=== PATIENT | female | born 1950 | race African-American/Black ===

== ENCOUNTER 2017-04-17 19:04 | Inpatient (IN) ==
[2017-04-17] MEDS ORDERED: SODIUM CHLORIDE 0.9% 1,000 ML IV STA (19:29)
[2017-04-17] MEDS ORDERED: INSULIN REGULAR 100 UNIT/ML SUBCUT STA (19:29)
[2017-04-17] MEDS ORDERED: INSULIN REGULAR 100 UNIT/ML ONE ×2 (19:42→21:40)
--- NOTE | 2017-04-17 19:48 | XRay Report ---
Portable chest. Indication: Shortness of breath and fever. Comparison: April 15, 2017. The heart is normal in size. The mediastinal contours are unremarkable. The pulmonary vasculature is normal. There is no consolidation, pneumothorax, or pleural effusion. Degenerative changes are noted within the spinal column and shoulders. Impression: No acute abnormality. PROCEDURE INTERPRETED AT [facility] DEPARTMENT OF RADIOLOGY Final Report Signed by: Dr. Ibis Klein
--- NOTE | 2017-04-17 20:15 | Emergency Department Note ---
Sarah Auguste Hilary, am scribing for, and in the presence of, Mitul Pablo MD 19:35. Bev Auguste Charles R, MD, personally performed the services described in this documentation, ascribed by Adrienne Smith in my presence, and it is both accurate and complete . Arrival - Arrival Chief Complaint: Non-Specific Stated Complaint: high blood sugar ED Nursing Triage Note: Patient to triage complaining of high blood sugar. She states at home it was 450. She states it has been high since yesterday and she is unable to get it down. Patient is complaining of a headache. Mode of Arrival: Ambulatory Limitations: No Limitations Source: Patient, RN Notes Reviewed Time Seen by Provider: 04/17/17 19:25 - History of Present Illness HPI Narrative: Pt is a 67 y/o black female presenting to the ED with c/o high blood sugar which onset today. She states that her blood sugar at home was 450 and that it is not normally this high. She confirms neck pain, cough, abdominal "funny feeling" and sore throat but denies dysuria or frequent urination. No other complaints or problems stated in the ED. Onset (ago): hour(s) Consistency: constant Severity: mild Allergies/Adverse Reactions: Allergies Allergy/AdvReac Type Severity Reaction Status Date / Time No Known Allergies Allergy Unverified 04/17/17 19:21 Home Medications: Home Medications Medication Instructions Recorded Confirmed Type Cyclobenzaprine [Flexeril] 10 mg PO TID #10 tablet 04/15/17 04/17/17 Rx HYDROcodone/ACETAMIN 5-325 [[facility] 1 tablet PO Q6H #15 tablet 04/15/17 04/17/17 Rx 5-325] Linagliptin [Tradjenta] 5 mg PO DAILY 04/15/17 04/17/17 History Lisinopril 20 mg PO DAILY 04/15/17 04/17/17 History Omeprazole 20 mg PO DAILY 04/15/17 04/17/17 History glipiZIDE [Glipizide] 5 mg PO BID 04/15/17 04/17/17 History Cyanocobalamin (Vitamin B-12) 1,000 mcg IJ Q30D 04/17/17 04/17/17 History [Cyanocobalamin Injection] Review of System - Review of System 12 point system: reviewed and no additional remarkable complaints except as stated - Review of System Constitutional: Present: other (high blood sugar) Head/Ears/Nose/Throat: Present: sore throat Respiratory: Present: cough Gastrointestinal: Absent: abdominal pain ("funny feeling") Genitourinary female: Absent: dysuria, frequency Musculoskeletal: Present: neck pain Medical,Surgical,& Family Hx - Medical History Endocrine: History of: Diabetes Mellitus (NIDDM), Dyslipidemia - Social History Smoking Status: Never smoker Frequency of Alcohol Use: None Type of Drug Use: None Exam Vital Signs: Vital Signs Temperature 100.4 F H 04/17/17 21:00 Pulse Rate 86 04/17/17 20:13 Respiratory Rate 18 04/17/17 20:13 Blood Pressure 156/65 04/17/17 20:13 O2 Sat by Pulse Oximetry 97 04/17/17 19:17 - General General appearance: alert, in no apparent distress - Head Head exam: Present: atraumatic, normocephalic - Eye Eye exam: Present: normal appearance, PERRL, EOMI - ENT ENT exam: Present: mucous membranes moist, TM's normal bilaterally. Absent: mucous membranes dry - Expanded ENT Exam Throat exam: Present: tonsillar erythema - Neck Neck exam: Present: full ROM, trachea midline, lymphadenopathy (shotty lymphadenopathy) - Chest Chest inspection: Present: symmetric chest wall rise. Absent: tenderness - Respiratory Respiratory exam: Present: normal lung sounds bilaterally. Absent: respiratory distress - Cardiovascular Cardiovascular exam: Present: regular rate, normal rhythm, normal heart sounds. Absent: murmur, rubs, gallop - Abdominal Exam Abdominal exam: Present: soft, normal bowel sounds. Absent: distention, tenderness - Extremities Exam Extremities exam: Present: full ROM, pedal edema (+1 pedal edema). Absent: tenderness - Back Exam Back exam: Present: full ROM. Absent: tenderness - Neurological Exam Neurological exam: Present: alert, oriented X3, CN II-XII intact. Absent: motor sensory deficit - Psychiatric Psychiatric exam: Present: normal affect, normal mood - Skin Skin exam: Present: warm, dry, intact, normal color. Absent: rash Course Course Narrative: Patient had elevated sed rate elevated C-reactive protein. She has meningeal signs her neck positive Kernig's. Patient has a fever and elevated blood sugars from diabetes. Patient is nontoxic appearing unable to do spinal tap awaiting urine meningitis panel. Most likely patient has meningitis whether it is viral versus bacterial is unclear - Consultations Consultation #1: Hospitalist will admit patient Time: 00:17 Procedures - Lumbar Puncture Consent Obtained: verbal consent, written consent Patient Position: upright Skin Prep: Povidone-Iodine 1% Local Anesthetic: lidocaine 1% Amount of anesthesia used (mL): 3 Spinal Needle Gauge: 22G Interspace Used: L4-L5 Additional Comments: Was able to obtain one drop that was clear of CSF fluid able to access the space twice unable to get any type of fluid back. Patient tolerated procedure well no back pain no paresthesias of lower extremities patient's vital signs remained stable Complications: unable to obtain CSF Results - Labs CBC & BMP: 04/17/17 19:38 04/17/17 19:38 Lab Results: I have reviewed the patients labs Labs: Microbiology 04/17/17 19:29 Throat Group A Streptococcus Rapid Screen - Final Negative for Grp A Strep Ag 04/17/17 19:29 Nasal Aspirate Influenza Types A,B Antigen (LUX) - Final Negative for Influenza A Ag Negative for Influenza B Ag Laboratory Tests 04/17/17 04/17/17 04/17/17 19:29 19:38 19:38 WBC 10.7 RBC 3.42 L Hgb 10.7 L Hct 30.8 L Lymph % (Auto) 15.8 L Neut # (Auto) 7.8 H [place] # (Auto) 0.9 H Sodium 133 L Potassium 5.0 Chloride 96 L Carbon Dioxide 28 BUN 27 H Creatinine 1.60 H Glucose 360 H POC Glucose C-Reactive Protein 7.80 H Albumin 3.2 L Globulin 4.1 H Albumin/Globulin Ratio 0.7 L Urine Color Yellow Urine Appearance Slightly hazy Urine Urobilinogen < 2.0 H 04/17/17 21:23 WBC RBC Hgb Hct Lymph % (Auto) Neut # (Auto) [place] # (Auto) Sodium Potassium Chloride Carbon Dioxide BUN Creatinine Glucose POC Glucose 344 H C-Reactive Protein Albumin Globulin Albumin/Globulin Ratio Urine Color Urine Appearance Urine Urobilinogen Laboratory Tests 04/17/17 19:38 ESR Westergren 96 H - Diagnostic Findings Procedure: Chest x-ray: report reviewed by me (no acute abnormality), CT: report reviewed by me (HEAD: No acute intracranial pathology seen) Critical Care Time Critical Care Time: Yes Total Critical Care Time: 90 Disposition Clinical Impression: Fever, Meningitis, Hyperglycemia, Sepsis Sepsis - Sepsis Classification of Sepsis: Sepsis - Physical Exam Respiratory exam: clear to auscultation bilaterally Capillary Refill: Less Than 3 Seconds Cardiovascular exam: regular rate and rhythm Skin exam: normal color
[2017-04-17 20:21] LABS: Basophils % 0.4 % (0.0-0.8); Eosinophils # 0.1 10*3/uL (0.0-0.87); Eosinophils % 1.3 % (0.00-10.9); Hematocrit 30.8 VOL% (35.7-47.0); Hemoglobin 10.7 GM/DL (12.0-16.0); Immature Granulocytes % 1.8 %; Immature Granulocytes Absolute 0.19 #; Lymphocytes # 1.7 10*3/uL (1.4-4.0); Lymphocytes % 15.8 % (21.3-54.2); Mean Corpuscular HGB Conc 34.7 GM/DL (32-36); Mean Corpuscular Hemoglobin 31 PG (27-34); Mean Corpuscular Volume 90.1 FL (87-102); Mean Platelet Volume 11.2 FL (9.6-12.0); Monocytes # 0.9 10*3/uL (0.11-0.8); Monocytes % 8.1 % (1.7-12.7); Neutrophils # 7.8 10*3/uL (1.4-7.4); Neutrophils % 72.6 % (38.7-73.9); Platelet Count 207 T/CUMM (130-400); Red Blood Count 3.42 MC/CUMM (3.8-5.5); Red Cell Distribution Width 13.1 % (9.3-17.3); White Blood Count 10.7 T/CUMM (4-12)
[2017-04-17 20:34] LABS: Albumin 3.2 G/DL (3.4-5.0); Bilirubin,Total 0.4 MG/DL (0.2-1.0); Calcium 8.6 MG/DL (8.5-10.1); Osmolality,Calculated 285.4 MOS/KG (273-304); Total Protein 7.3 G/DL (6.4-8.3)
[2017-04-17 20:41] LABS: Apearance,Urine Slightly Hazy (Clear); Bacteria,Urine Occasional /HPF (Few); Bilirubin,Urine Negative (Negative); Blood, Urine Moderate mg/dL (Negative); Glucose,Urine (UA) >=500 mg/dL (Negative); Ketones,Urine Negative (Negative); Mucus,Urine Occasional /LPF (Occasional); Nitrite,Urine Negative (Negative); Protein,Urine Negative; RBC,Urine 1 /HPF (0-4); Squamous Epithelial Cell,Urine Occasional /HPF (0-10); Urine Color Yellow (Yellow); Urine Specific Gravity 1.007 (1.001-1.035); Urine Urobilinogen < 2.0 EU/DL (0.2-1.0); WBC,Urine 1 /HPF (0-6)
[2017-04-17] MEDS ORDERED: INSULIN REGULAR 100 UNIT/ML IV STA (21:28)
[2017-04-17] MEDS ORDERED: cefTRIAXone 1,000 MG in SODIUM CHLORIDE 0.9% 100 ML IV STA (22:18)
[2017-04-17 22:35] LABS: Sedimentation Rate-Westergren 96 MM/HR (0-30)
--- NOTE | 2017-04-17 22:57 | CT Report ---
History is headache The ventricles are normal in size. No acute intracranial hemorrhage, mass effect, or evidence of acute cortical stroke seen. Impression: No acute intracranial pathology seen. The CT exam was performed using one or more of the following dose reduction techniques: Automated exposure control, adjustment of the mA and/or kV according to patient size, or use of iterative reconstruction technique. PROCEDURE INTERPRETED AT [facility] DEPARTMENT OF RADIOLOGY Final Report Signed by: Dr. Ruby Klein
[2017-04-17] MEDS ORDERED: SODIUM CHLORIDE 0.9% 100 ML IV ONE (23:15)
[2017-04-17] MEDS ORDERED: cefTRIAXone 1,000 MG VIAL ONE (23:15)
[2017-04-18] MEDS ORDERED: VANCOMYCIN INJ 1,000 MG in SODIUM CHLORIDE 0.9% 250 ML IV STA (00:22)
[2017-04-18] MEDS ORDERED: SODIUM CHLORIDE 0.9% 250 ML IV ONE (00:59)
[2017-04-18] MEDS ORDERED: VANCOMYCIN 1,000 MG VIAL ONE (00:59)
[2017-04-18] MEDS ORDERED: ONDANSETRON 4 MG/2 ML VIAL IV PRN (01:25)
[2017-04-18] MEDS ORDERED: GLUCAGON 1 MG VIAL IM PRN (01:25)
[2017-04-18] MEDS ORDERED: DEXTROSE 50% 25 GM/50 ML VIAL IV PRN (01:25)
--- NOTE | 2017-04-18 01:49 | Hospitalist History & Physical ---
Assessment and Plan (1) Fever Status: Acute Current Visit: Yes (2) Meningitis Status: Acute Current Visit: Yes (3) Hyperglycemia Status: Acute Current Visit: Yes (4) Sepsis Status: Acute Assessment and plan: Our plan for this patient will be admitting her to our hospital. I will start her on Rocephin and vancomycin. Will consult infectious disease. Patient will have a LP done by interventional radiology tomorrow. Repeat labs in the morning and adjust plans appropriate Current Visit: Yes History of Present Illness Chief complaint: Headache fever and neck stiffness History of present illness: Ms. Skinner is a 67 year old female with past medical history significant for diabetes includes cholesterol and mild kidney disease who presents to our ER tonight. Patient reports her symptoms started last Saturday or . She drove from [place] to [place]. She arrived here 2 PM Saturday. She had a call first this been coming and going for the past month. His been productive lately. She says she coughs so hard sometimes it hurts her neck. She told that she had a cervical spine sprain this week by ER physician. Patient has not been confused family has not noticed any confusion. Patient's head started hurting and she started running fever along with this stiffness she came to our hospital for further evaluation. I was consulted for admission. Patient was not able to have an LP performed by the ER physician. Home Medications Medication Instructions Recorded Confirmed Type Cyclobenzaprine [Flexeril] 10 mg PO TID #10 tablet 04/15/17 04/17/17 Rx HYDROcodone/ACETAMIN 5-325 [[facility] 1 tablet PO Q6H #15 tablet 04/15/17 04/17/17 Rx 5-325] Linagliptin [Tradjenta] 5 mg PO DAILY 04/15/17 04/17/17 History Lisinopril 20 mg PO DAILY 04/15/17 04/17/17 History Omeprazole 20 mg PO DAILY 04/15/17 04/17/17 History glipiZIDE [Glipizide] 5 mg PO BID 04/15/17 04/17/17 History Cyanocobalamin (Vitamin B-12) 1,000 mcg IJ Q30D 04/17/17 04/17/17 History [Cyanocobalamin Injection] Allergies Allergy/AdvReac Type Severity Reaction Status Date / Time No Known Allergies Allergy Unverified 04/17/17 19:21 Medical,Surgical,& Family Hx - Medical History Endocrine: History of: Diabetes Mellitus (NIDDM), Dyslipidemia - Surgical History HEENT Surgeries: Surgical HX of: Tonsilectomy & Adenoidectomy Reproductive Surgeries: Surgical HX of;: Hysterectomy Orthopedic Surgeries: Surgical HX of;: Orthopedic Surgery - Family History Additional Family History: Coronary artery disease diabetes includes cholesterol - Social History Smoking Status: Never smoker Frequency of Alcohol Use: None Type of Drug Use: None 12 point system: reviewed and no additional remarkable complaints except as stated Exam - Constitutional Vitals: Period Temp Pulse Resp BP Sys/Gross Pulse Ox Last 24 Hr 100.4 F-100.8 F 86-91 18-22 141-156/65-65 97 General appearance: over weight - Head Head exam: Present: normal inspection - Eye Eye exam: Present: EOMI Pupils: Present: MARISOL - ENT ENT exam: Present: normal exam - Neck Neck exam: Present: other (Patient has neck stiffness and meningeal signs) - Respiratory Respiratory exam: Present: clear to auscultation bilaterally - Cardiovascular Cardiovascular exam: Present: regular rate and rhythm - GI/Abdominal GI/Abdominal exam: Present: normal bowel sounds - Extremities Exam Extremities exam: Present: normal inspection - Back Exam Back exam: Present: normal inspection - Neurological Exam Neurological exam: Present: alert, oriented X3 - Psychiatric Psychiatric exam: Present: normal affect, normal mood - Skin Skin exam: Present: normal color Results - Labs CBC & BMP: 04/17/17 19:38 04/17/17 19:38
[2017-04-18] MEDS: SODIUM CHLORIDE 0.9% 1,000 ML IV SCH ×3 (03:34→16:25)
[2017-04-18] MEDS: ACETAMINOPHEN 325 MG TABLET PO PRN ×2 (05:17→21:44)
[2017-04-18] MEDS ORDERED: VANCOMYCIN INJ 1,000 MG in SODIUM CHLORIDE 0.9% 250 ML IV ONE (06:00)
[2017-04-18 07:13] LABS: Basophils % 0.2 % (0.0-0.8); Eosinophils # 0.1 10*3/uL (0.0-0.87); Eosinophils % 1.2 % (0.00-10.9); Hematocrit 30.5 VOL% (35.7-47.0); Hemoglobin 10.4 GM/DL (12.0-16.0); Immature Granulocytes % 1.8 %; Lymphocytes # 1.8 10*3/uL (1.4-4.0); Lymphocytes % 15.6 % (21.3-54.2); Mean Corpuscular HGB Conc 34.1 GM/DL (32-36); Mean Corpuscular Hemoglobin 30 PG (27-34); Mean Corpuscular Volume 88.9 FL (87-102); Mean Platelet Volume 11.1 FL (9.6-12.0); Monocytes # 0.8 10*3/uL (0.11-0.8); Monocytes % 7.1 % (1.7-12.7); Neutrophils # 8.4 10*3/uL (1.4-7.4); Neutrophils % 74.1 % (38.7-73.9); Platelet Count 198 T/CUMM (130-400); Red Blood Count 3.43 MC/CUMM (3.8-5.5); Red Cell Distribution Width 13.1 % (9.3-17.3); White Blood Count 11.4 T/CUMM (4-12)
[2017-04-18] MEDS: INSULIN REGULAR 100 UNIT/ML SUBCUT SCH ×4 (07:30→22:04)
[2017-04-18 07:40] LABS: Bilirubin,Total 0.6 MG/DL (0.2-1.0); Calcium 8.9 MG/DL (8.5-10.1); Osmolality,Calculated 286.1 MOS/KG (273-304); Potassium 4.6 MMOL/L (3.5-5.1); Total Protein 7.2 G/DL (6.4-8.3)
[2017-04-18 07:58] LABS: PT Patient Result 10.2 SECS
--- NOTE | 2017-04-18 09:18 | Post Interventional Procedure ---
Pre-op diagnosis: headache, neck stiffness Post-op diagnosis: same Procedure: lumbar puncture Contrast: none Flouroscopy: 0.9 min Radiologist: Ziggy York Anesthesia: local Specimens: other (11 mL clear colorless CSF) Estimated blood loss: none Complications: none Condition: stable Description/Findings: Opening pressure 26 cm H2O Assessment and Plan - Time spent with patient Time spent with patient: Less than 30 minutes
--- NOTE | 2017-04-18 09:23 | Interventional Radiology Rpt ---
Procedure: IR lumbar puncture diagnostic Clinical history: 67-year-old female with headache, neck stiffness. Failed bedside lumbar puncture in the emergency room. Procedure: Informed consent was obtained prior to procedure. Formal timeout was performed. Maximum sterile barrier technique was employed. The patient was placed prone on the fluoroscopy table. The low back was prepped and draped in a sterile fashion. A midline lumbar puncture was then performed at the L2-L3 interspace using a 20-gauge spinal needle. Fluoroscopic guidance was used and a captured image documents the needle position. An opening pressure of 26 cm water was obtained. Subsequently, 11 milliliters of clear, colorless CSF was withdrawn and sent to laboratory. The spinal needle was removed and a bandage placed the puncture site. Fluoroscopy time: 0.8 minutes. Total number of images for the procedure: 88 Consultations: None. Impression: Technically successful diagnostic lumbar puncture as described. PROCEDURE INTERPRETED AT [facility] DEPARTMENT OF RADIOLOGY Final Report Signed by: Ziggy York
[2017-04-18 09:24] LABS: Lymphocytes,CSF 67 %; Monocytes,CSF 33 %
[2017-04-18 09:25] LABS: Appearance,CSF Clear; Red Blood Cell,CSF < 1 C/CUMM; White Blood Cell,CSF 9 C/CUMM
[2017-04-18] MEDS: LISINOPRIL 20 MG TABLET PO SCH (09:33)
[2017-04-18] MEDS: PANTOPRAZOLE 40 MG TABLET PO SCH (09:34)
[2017-04-18] MEDS ORDERED: cefTRIAXone 2,000 MG in SODIUM CHLORIDE 0.9% 100 ML IV SCH (10:00)
--- NOTE | 2017-04-18 10:04 | Infectious Disease Consult ---
Assessment and Plan (1) Fever Status: Acute Assessment and plan: Possible viral illness with malaise anorexia present for the past week. Supportive care. Current Visit: Yes (2) Meningitis Status: Acute Assessment and plan: CSF opening pressure was elevated, she has mildly elevated CSF protein and mild lymphocytic pleocytosis. Possible viral meningitis. Recommendations: 1. Send CSF for HSV PCR 2. Start empiric acyclovir 10 mg/kg every 8 hours 3. Discontinue ceftriaxone and vancomycin Thank you very much for the consult. Will follow. Discussed with sister at bedside Current Visit: Yes (3) Cough Status: Acute Assessment and plan: Possible viral illness. Current Visit: No (4) Acute renal insufficiency Status: Acute Assessment and plan: Possibly dehydration from reduced Oral intake. Improved today since yesterday. Continue to monitor and adjust antibiotics as necessary. Current Visit: Yes History of Present Illness Chief complaint: Possible meningitis History of present illness: Ms. Skinner is a 67 year old female Who resides in [place] but drove over to [place] 5 days ago presented with severe headache to the posterior aspect of her head as well as neck pain and stiffness. She started getting ill 2 days before leaving for [place] with malaise subjective fever and cough. Cough was productive of initially yellowish and then whitish sputum. No sore throat mild runny nose no nasal congestion. She has been anorexic over the past 5-7 days but no nausea vomiting or diarrhea. The headache got so severe and neck stiffness that she came to the hospital. She was noted on presentation to have a fever of 100.8 but she did not realize she had fever before coming in. LP was done this morning and I am asked to advise on antibiotic therapy. Patient denies ill contacts except her grandson who had a mild upper respiratory illness. Home Medications Medication Instructions Recorded Confirmed Type Cyclobenzaprine [Flexeril] 10 mg PO TID #10 tablet 04/15/17 04/17/17 Rx HYDROcodone/ACETAMIN 5-325 [[facility] 1 tablet PO Q6H #15 tablet 04/15/17 04/17/17 Rx 5-325] Linagliptin [Tradjenta] 5 mg PO DAILY 04/15/17 04/17/17 History Lisinopril 20 mg PO DAILY 04/15/17 04/17/17 History Omeprazole 20 mg PO DAILY 04/15/17 04/17/17 History glipiZIDE [Glipizide] 5 mg PO BID 04/15/17 04/17/17 History Cyanocobalamin (Vitamin B-12) 1,000 mcg IJ Q30D 04/17/17 04/17/17 History [Cyanocobalamin Injection] Allergies Allergy/AdvReac Type Severity Reaction Status Date / Time No Known Allergies Allergy Unverified 04/17/17 19:21 12 point system: reviewed and no additional remarkable complaints except as stated (Per HPI) Medical,Surgical,& Family Hx - Medical History Endocrine: History of: Diabetes Mellitus (NIDDM), Dyslipidemia Gastrointestinal: History of: GERD - Surgical History HEENT Surgeries: Surgical HX of: Tonsilectomy & Adenoidectomy Reproductive Surgeries: Surgical HX of;: Hysterectomy Orthopedic Surgeries: Surgical HX of;: Orthopedic Surgery - Family History Family History: Reports;: Family Cancer, Family Diabetes, Family Hypertension - Social History Smoking Status: Never smoker Frequency of Alcohol Use: None Type of Drug Use: None Infectious Disease Exam H&P - Constitutional Vitals: Vital Signs Temp Pulse Resp BP Pulse Ox 98.1 F 79 18 146/72 99 04/18/17 07:33 04/18/17 07:33 04/18/17 07:33 04/18/17 07:33 04/18/17 07:33 Intake and Output 04/17/17 04/18/17 04/18/17 23:59 07:59 15:59 Intake Total 720 / 720 1000 / 1000 Output Total 1100 / 1100 Balance -380 / -380 1000 / 1000 Intake: IV 1000 / 1000 Ns 1,000 ml @ 125 mls/hr 1000 / 1000 IV .Q8H [facility] Rx#: [id number] Oral 720 / 720 Output: Urine 1100 / 1100 Stool 0 / 0 Other: Voiding Method Toilet Weight 88.451 kg 87.861 kg Patient Weight 04/18/17 23:59 Weight 87.861 kg Exam: General: Patient in mild discomfort from headache but she is completely nontoxic appearing, no photophobia when I put on the light HEENT: Mucous membranes pink and moist, anicteric acyanotic, MARISOL, no oropharyngeal exudates, good dentition Neck: Meningism present, no thyroid gland enlargement, no lymphadenopathy Respiratory system: Breath sounds vesicular, no crepitations or wheezes Cardiovascular: Normal S1 and S2, no murmurs appreciated Abdomen: Normal bowel sounds, soft nontender throughout, no organomegaly or mass Genitourinary: No suprapubic pain or bladder distention Extremities: no edema Skin: No rash Reports - Labs CBC & BMP: 04/18/17 05:32 04/18/17 05:32 Labs: Laboratory Results - last 24 hr 04/17/17 04/17/17 04/17/17 19:29 19:38 19:38 WBC 10.7 RBC 3.42 L Hgb 10.7 L Hct 30.8 L MCV 90.1 MCH 31 MCHC 34.7 RDW 13.1 Plt Count 207 MPV 11.2 Neut % (Auto) 72.6 Lymph % (Auto) 15.8 L [place] % (Auto) 8.1 Eos % (Auto) 1.3 Baso % (Auto) 0.4 Neut # (Auto) 7.8 H Lymph # (Auto) 1.7 [place] # (Auto) 0.9 H Eos # (Auto) 0.1 Baso # (Auto) 0.0 Immature Gran % 1.8 Nucleated RBC % 0.0 Immature Gran # 0.19 Nucleated RBCs # 0.00 ESR Westergren 96 H INR PT Patient/Control Mix Sodium 133 L Potassium 5.0 Chloride 96 L Carbon Dioxide 28 Anion Gap 14.0 BUN 27 H Creatinine 1.60 H GFR Calculation 42 BUN/Creatinine Ratio 16.00 Glucose 360 H POC Glucose Calculated Osmolality 285.4 Lactic Acid Calcium 8.6 Total Bilirubin 0.40 AST 15 ALT 16 Alkaline Phosphatase 94 Lactate Dehydrogenase 242 C-Reactive Protein 7.80 H Total Protein 7.3 Albumin 3.2 L Globulin 4.1 H Albumin/Globulin Ratio 0.7 L Amylase 65 Lipase 183.0 Urine Color Yellow Urine Appearance Slightly hazy Urine pH 5.0 Ur Specific [place] 1.007 Urine Protein Negative Urine Glucose (UA) >=500 Urine Ketones Negative Urine Blood Moderate Urine Nitrate Negative Urine Bilirubin Negative Urine Urobilinogen < 2.0 H Urine Leukocytes Negative Urine RBC 1 Urine WBC 1 Ur Squamous Epith Cells Occasional Urine Bacteria Occasional Urine Mucus Occasional Ur Culture Indicated? Not indicated CSF Appearance CSF Color CSF WBC CSF RBC CSF Diff Total Count CSF Lymphocytes CSF Monocytes CSF Glucose CSF Total Protein 04/17/17 04/18/17 04/18/17 21:23 00:12 02:38 WBC RBC Hgb Hct MCV MCH MCHC RDW Plt Count MPV Neut % (Auto) Lymph % (Auto) [place] % (Auto) Eos % (Auto) Baso % (Auto) Neut # (Auto) Lymph # (Auto) [place] # (Auto) Eos # (Auto) Baso # (Auto) Immature Gran % Nucleated RBC % Immature Gran # Nucleated RBCs # ESR Westergren INR PT Patient/Control Mix Sodium Potassium Chloride Carbon Dioxide Anion Gap BUN Creatinine GFR Calculation BUN/Creatinine Ratio Glucose POC Glucose 344 H 133 H Calculated Osmolality Lactic Acid 1.7 Calcium Total Bilirubin AST ALT Alkaline Phosphatase Lactate Dehydrogenase C-Reactive Protein Total Protein Albumin Globulin Albumin/Globulin Ratio Amylase Lipase Urine Color Urine Appearance Urine pH Ur Specific [place] Urine Protein Urine Glucose (UA) Urine Ketones Urine Blood Urine Nitrate Urine Bilirubin Urine Urobilinogen Urine Leukocytes Urine RBC Urine WBC Ur Squamous Epith Cells Urine Bacteria Urine Mucus Ur Culture Indicated? CSF Appearance CSF Color CSF WBC CSF RBC CSF Diff Total Count CSF Lymphocytes CSF Monocytes CSF Glucose CSF Total Protein 04/18/17 04/18/17 04/18/17 05:32 05:32 07:28 WBC 11.4 RBC 3.43 L Hgb 10.4 L Hct 30.5 L MCV 88.9 MCH 30 MCHC 34.1 RDW 13.1 Plt Count 198 MPV 11.1 Neut % (Auto) 74.1 H Lymph % (Auto) 15.6 L [place] % (Auto) 7.1 Eos % (Auto) 1.2 Baso % (Auto) 0.2 Neut # (Auto) 8.4 H Lymph # (Auto) 1.8 [place] # (Auto) 0.8 Eos # (Auto) 0.1 Baso # (Auto) 0.0 Immature Gran % 1.8 Nucleated RBC % 0.0 Immature Gran # 0.20 Nucleated RBCs # 0.00 ESR Westergren INR 1.0 PT Patient/Control Mix 10.2 Sodium 142 Potassium 4.6 Chloride 106 Carbon Dioxide 27 Anion Gap 13.6 BUN 20 H Creatinine 1.30 H GFR Calculation 54 BUN/Creatinine Ratio 15.00 Glucose 120 H POC Glucose Calculated Osmolality 286.1 Lactic Acid Calcium 8.9 Total Bilirubin 0.60 AST 15 ALT 16 Alkaline Phosphatase 90 Lactate Dehydrogenase C-Reactive Protein Total Protein 7.2 Albumin 3.0 L Globulin 4.2 H Albumin/Globulin Ratio 0.7 L Amylase Lipase Urine Color Urine Appearance Urine pH Ur Specific [place] Urine Protein Urine Glucose (UA) Urine Ketones Urine Blood Urine Nitrate Urine Bilirubin Urine Urobilinogen Urine Leukocytes Urine RBC Urine WBC Ur Squamous Epith Cells Urine Bacteria Urine Mucus Ur Culture Indicated? CSF Appearance CSF Color CSF WBC CSF RBC CSF Diff Total Count CSF Lymphocytes CSF Monocytes CSF Glucose CSF Total Protein 04/18/17 04/18/17 04/18/17 09:00 09:00 09:00 WBC RBC Hgb Hct MCV MCH MCHC RDW Plt Count MPV Neut % (Auto) Lymph % (Auto) [place] % (Auto) Eos % (Auto) Baso % (Auto) Neut # (Auto) Lymph # (Auto) [place] # (Auto) Eos # (Auto) Baso # (Auto) Immature Gran % Nucleated RBC % Immature Gran # Nucleated RBCs # ESR Westergren INR PT Patient/Control Mix Sodium Potassium Chloride Carbon Dioxide Anion Gap BUN Creatinine GFR Calculation BUN/Creatinine Ratio Glucose POC Glucose Calculated Osmolality Lactic Acid Calcium Total Bilirubin AST ALT Alkaline Phosphatase Lactate Dehydrogenase C-Reactive Protein Total Protein Albumin Globulin Albumin/Globulin Ratio Amylase Lipase Urine Color Urine Appearance Urine pH Ur Specific [place] Urine Protein Urine Glucose (UA) Urine Ketones Urine Blood Urine Nitrate Urine Bilirubin Urine Urobilinogen Urine Leukocytes Urine RBC Urine WBC Ur Squamous Epith Cells Urine Bacteria Urine Mucus Ur Culture Indicated? CSF Appearance Clear CSF Color Colorless CSF WBC 9 CSF RBC < 1 CSF Diff Total Count 9 CSF Lymphocytes 67 CSF Monocytes 33 CSF Glucose 80 H CSF Total Protein 62 H - Reports Microbiology: Microbiology 04/18/17 01:44 Direct Antigen Panel - Final Cerebral Spinal Fluid Neg for Antigens-see report 04/17/17 19:29 Quick Strep Confirmation Culture - Final Throat No Group A Streptococcus isolated. Group A Streptococcus Rapid Screen - Final Negative for Grp A Strep Ag 04/18/17 00:00 Direct Antigen Panel - Final Urine,Catheterized 04/17/17 19:29 Influenza Types A,B Antigen (LUX) - Final Nasal Aspirate Negative for Influenza A Ag Negative for Influenza B Ag - Diagnostic Findings Procedure: Chest x-ray: report reviewed by me (No acute pathology), CT: report reviewed by me (CT head unremarkable)
[2017-04-18] MEDS: ACYCLOVIR INJ 900 MG in SODIUM CHLORIDE 0.9% 250 ML IV SCH ×2 (11:23→18:06)
--- NOTE | 2017-04-18 14:49 | Hospitalist Progress Note ---
Assessment and Plan (1) Meningitis Status: Acute Assessment and plan: Son spinal tap looks like aseptic meningitis. Continue vancomycin and Rocephin until CSF cultures are available. Start acyclovir. Thanks to Dr. Shah for her help. Current Visit: Yes (2) Hypertension Status: Acute Assessment and plan: Continue lisinopril, monitor potassium Current Visit: Yes (3) Diabetes Status: Acute Assessment and plan: hemoglobin A1c, ISc started back glyburide and Tradjenta Current Visit: Yes (4) Headache Status: Acute Assessment and plan: Demerol as needed headache. Current Visit: Yes (5) Acute renal failure Status: Acute Assessment and plan: Gentle hydration with one half normal saline Current Visit: Yes Hospitalist: Subjective Interval history: I have reviewed her CSF tap and she does have aseptic meningitis. Dr. Shah has seen her. She is still having quite a bad headache. Exam - Constitutional Vitals: Period Temp Pulse Resp BP Sys/Gross Pulse Ox Last 24 Hr 98.1 F-100.8 F 79-91 18-22 141-156/58-75 97-99 Exam: Heart Rate-[RRR] Lungs-[CTAB] GI-[+bs soft, NT, obese ] Ext-[no edema] Neuro [Motor 5/5], [alert and oriented times 3] psych [normal mood and affect] General [mild acute distress due to pain] Results - Labs CBC & BMP: 04/18/17 05:32 04/18/17 05:32 Lab Results: I have reviewed the past 24 hour labs Quality Measures - Stroke Symptom Onset Unknown: No
[2017-04-18] MEDS ORDERED: MEPERIDINE 25 MG/1 ML VIAL IM PRN (15:02)
[2017-04-18] MEDS: CYCLOBENZAPRINE 10 MG TABLET PO SCH ×2 (16:21→21:45)
[2017-04-18] MEDS: sitaGLIPtin 100 MG TABLET PO SCH (16:22)
--- NOTE | 2017-04-18 16:22 | Neurology Consult Note ---
History of Present Illness History of present illness: Ms. Skinner is a 67 year old right-handed -[place] lady who resides in [place] but drove over to [place] 5 days ago presented with severe headache to the posterior aspect of her head as well as neck pain and stiffness. She started getting ill 2 days before leaving for [place] with malaise subjective fever and cough. No sore throat mild runny nose no nasal congestion. She has been anorexic over the past 5-7 days but no nausea vomiting or diarrhea. The headache got so severe and neck stiffness that she came to the hospital. She was noted on presentation to have a fever of 100.8 but she did not realize she had fever before coming in. LP was done which shows glucose: 80, total protein: 62, WBC: 9, lymphocytes: 67% RBC: Less than 1. Patient denies ill contacts except her grandson who had a mild upper respiratory illness. CT of the head is unremarkable Home Medications Medication Instructions Recorded Confirmed Type Cyclobenzaprine [Flexeril] 10 mg PO TID #10 tablet 04/15/17 04/17/17 Rx HYDROcodone/ACETAMIN 5-325 [[place] 1 tablet PO Q6H #15 tablet 04/15/17 04/17/17 Rx 5-325] Linagliptin [Tradjenta] 5 mg PO DAILY 04/15/17 04/17/17 History Lisinopril 20 mg PO DAILY 04/15/17 04/17/17 History Omeprazole 20 mg PO DAILY 04/15/17 04/17/17 History glipiZIDE [Glipizide] 5 mg PO BID 04/15/17 04/17/17 History Cyanocobalamin (Vitamin B-12) 1,000 mcg IJ Q30D 04/17/17 04/17/17 History [Cyanocobalamin Injection] Allergies Allergy/AdvReac Type Severity Reaction Status Date / Time No Known Allergies Allergy Unverified 04/17/17 19:21 12 point system: reviewed and no additional remarkable complaints except as stated Medical,Surgical,& Family Hx - Medical History Endocrine: History of: Diabetes Mellitus (NIDDM), Dyslipidemia Gastrointestinal: History of: GERD - Surgical History HEENT Surgeries: Surgical HX of: Tonsilectomy & Adenoidectomy Reproductive Surgeries: Surgical HX of;: Hysterectomy Orthopedic Surgeries: Surgical HX of;: Orthopedic Surgery - Family History Family History: Reports;: Family Cancer, Family Diabetes, Family Hypertension - Social History Smoking Status: Never smoker Frequency of Alcohol Use: None Type of Drug Use: None Exam - Constitutional Vitals: Period Temp Pulse Resp BP Sys/Gross Pulse Ox Last 24 Hr 98.1 F-100.8 F 79-91 18-22 141-156/58-75 97-99 Exam: GENERAL: Patient is in no acute distress. NECK: Neck is stiff. There is no JVD. No carotid bruits present. No thyroid masses. CVS: First and second heart sounds are normal. There is no S3 present. Regular rate and rhythm. RESPIRATORY: Lungs are clear to auscultation without any rales or rhonchi. ABDOMEN: Soft and non-tender. Bowel sounds are present. There is no hepatosplenomegaly. EXT: There is no palpable edema. Peripheral pulses are present. Skin: No rashes Central Nervous system: General: Alert, awake and Oriented x 3 Speech: Fluent Comprehension: Intact and normal Facial expressions: Normal Cranial Nerves: CN1/Olfactory: Normal CN II/ Optic: Normal, Visual Lacy unreliable CN III, and : MARISOL & EOMI CN V: Normal & intact CN VII: face is symmetric CNVIII: Normal CN XI/X/XI/XII: Intact and Normal Motor: Bulk and Tone is normal. Strength in the right 5/5 Strength in the left 5/5 Sensory: Grossly intact for all the modalities of PP, LT and temp sense Reflexes: 1+ and symmetrical Cerebellar function: Normal finger to nose and heel to drake testing. Toes: Equivocal Gait: Not tested at this Results - Labs CBC & BMP: 04/18/17 05:32 04/18/17 05:32 Assessment and Plan (1) Viral meningitis Status: Acute Assessment and plan: Agree with acyclovir. Send CSF for herpes PCR. Patient is improving gradually. Continue supportive treatment Thank you for the consult Current Visit: Yes
[2017-04-18] MEDS: glipiZIDE 5 MG TABLET PO SCH (16:24)
[2017-04-18] MEDS: SODIUM CHLORIDE 0.45% 1,000 ML IV SCH (16:26)
[2017-04-19] MEDS: ACYCLOVIR INJ 900 MG in SODIUM CHLORIDE 0.9% 250 ML IV SCH ×3 (02:14→17:46)
[2017-04-19] MEDS: SODIUM CHLORIDE 0.45% 1,000 ML IV SCH ×2 (05:56→11:37)
[2017-04-19] MEDS ORDERED: VANCOMYCIN INJ 1,500 MG in SODIUM CHLORIDE 0.9% 500 ML IV SCH (06:00)
[2017-04-19 06:19] LABS: Basophils % 0.4 % (0.0-0.8); Eosinophils # 0.4 10*3/uL (0.0-0.87); Eosinophils % 3.9 % (0.00-10.9); Hematocrit 29.3 VOL% (35.7-47.0); Hemoglobin 9.8 GM/DL (12.0-16.0); Immature Granulocytes Absolute 0.22 #; Lymphocytes # 1.7 10*3/uL (1.4-4.0); Lymphocytes % 15.5 % (21.3-54.2); Mean Corpuscular HGB Conc 33.4 GM/DL (32-36); Mean Corpuscular Hemoglobin 29 PG (27-34); Mean Corpuscular Volume 87.7 FL (87-102); Mean Platelet Volume 10.6 FL (9.6-12.0); Monocytes # 0.7 10*3/uL (0.11-0.8); Monocytes % 6.5 % (1.7-12.7); Neutrophils # 7.8 10*3/uL (1.4-7.4); Neutrophils % 71.7 % (38.7-73.9); Platelet Count 205 T/CUMM (130-400); Red Blood Count 3.34 MC/CUMM (3.8-5.5); Red Cell Distribution Width 13.1 % (9.3-17.3); White Blood Count 10.9 T/CUMM (4-12)
[2017-04-19 06:52] LABS: Calcium 8.8 MG/DL (8.5-10.1); Magnesium 1.9 MG/DL (1.8-2.4); Osmolality,Calculated 289.1 MOS/KG (273-304); Potassium 4.8 MMOL/L (3.5-5.1)
[2017-04-19] MEDS: INSULIN REGULAR 100 UNIT/ML SUBCUT SCH ×4 (08:32→21:14)
[2017-04-19] MEDS: glipiZIDE 5 MG TABLET PO SCH ×2 (08:32→15:38)
[2017-04-19] MEDS: ACETAMINOPHEN 325 MG TABLET PO PRN (08:32)
[2017-04-19] MEDS: sitaGLIPtin 100 MG TABLET PO SCH (08:33)
[2017-04-19] MEDS: PANTOPRAZOLE 40 MG TABLET PO SCH (08:33)
[2017-04-19] MEDS: LISINOPRIL 20 MG TABLET PO SCH (08:33)
[2017-04-19] MEDS: CYCLOBENZAPRINE 10 MG TABLET PO SCH ×4 (08:33→21:15)
--- NOTE | 2017-04-19 08:51 | Neurology Progress Note ---
Neurology - PN : Subjective Interval history: Patient seems to be doing better. No new problems reported. Complaining of some mild headache though. Sitting up at the edge of the bed. Exam (Progress Note) - Constitutional Vitals: Period Temp Pulse Resp BP Sys/Gross Pulse Ox Last 24 Hr 98.2 F-99.5 F 79-92 18-21 117-147/52-75 95-99 Exam: GENERAL: Patient is in no acute distress. NECK: Neck is stiff. There is no JVD. No carotid bruits present. No thyroid masses. CVS: First and second heart sounds are normal. There is no S3 present. Regular rate and rhythm. RESPIRATORY: Lungs are clear to auscultation without any rales or rhonchi. ABDOMEN: Soft and non-tender. Bowel sounds are present. There is no hepatosplenomegaly. EXT: There is no palpable edema. Peripheral pulses are present. Skin: No rashes Central Nervous system: General: Alert, awake and Oriented x 3 Speech: Fluent Comprehension: Intact and normal Facial expressions: Normal Cranial Nerves: CN1/Olfactory: Normal CN II/ Optic: Normal, Visual Lacy unreliable CN III, and : MARISOL & EOMI CN V: Normal & intact CN VII: face is symmetric CNVIII: Normal CN XI/X/XI/XII: Intact and Normal Motor: Bulk and Tone is normal. Strength in the right 5/5 Strength in the left 5/5 Sensory: Grossly intact for all the modalities of PP, LT and temp sense Reflexes: 1+ and symmetrical Cerebellar function: Normal finger to nose and heel to drake testing. Toes: Equivocal Gait: Not tested at this time Results - Labs CBC & BMP: 04/19/17 06:11 04/19/17 06:11 Assessment and Plan (1) Viral meningitis Status: Acute Assessment and plan: Continue current management with antibiotic coverage Continue watchful observation Current Visit: Yes Quality Measures - Stroke Symptom Onset Unknown: No
--- NOTE | 2017-04-19 10:50 | Infectious Disease Progress ---
Assessment and Plan (1) Fever Status: Acute Assessment and plan: Possible viral illness with malaise anorexia present for the past week. Supportive care. Current Visit: Yes (2) Meningitis Status: Acute Assessment and plan: CSF opening pressure was elevated, she has mildly elevated CSF protein and mild lymphocytic pleocytosis. Possible viral meningitis. Recommendations: 1. Follow-up results of CSF HSV PCR 2. Continue empiric acyclovir 10 mg/kg every 8 hours Discussed with her sisters at bedside Current Visit: Yes (3) Cough Status: Acute Assessment and plan: Possible viral illness. Current Visit: No (4) Acute renal insufficiency Status: Acute Assessment and plan: Possibly dehydration from reduced Oral intake. Stable since yesterday. Continue to monitor and adjust antibiotics as necessary. Current Visit: Yes Infectious Disease - PN: Subj Interval history: Patient doing a little better but still having headache and neck stiffness. No more fever. Appetite is starting to improve. No nausea no vomiting or diarrhea. Still coughing a bit but no sputum. Infectious Disease Exam (PN) - Constitutional Vitals: Temp Pulse Resp BP Pulse Ox 98.8 F 84 20 145/71 95 04/19/17 07:30 04/19/17 07:30 04/19/17 07:30 04/19/17 07:30 04/19/17 07:30 General appearance: over weight Exam: General appearance: Lying very still in bed but not ill-appearing, she is conversant - Eye Eye exam: Present: EOMI. no icterus Pupils: Present: MARISOL - ENT ENT exam: no oropharyhgeal exudates - Neck Neck exam: A bit stiff - Respiratory Respiratory exam: vesicular BS, no crepitations or wheezes - Cardiovascular Cardiovascular exam: regular rate and rhythm, no murmurs - GI/Abdominal GI/Abdominal exam: normal bowel sounds, soft, non-tender, no organomegaly or mass - Extremities Exam Extremities exam: no edema - Skin Skin exam: no rash Results - Labs CBC & BMP: 04/19/17 06:11 04/19/17 06:11 Lab Results: I have reviewed the past 24 hour labs Quality Measures - Stroke Symptom Onset Unknown: No
--- NOTE | 2017-04-19 15:33 | Hospitalist Progress Note ---
Assessment and Plan (1) Meningitis Status: Acute Assessment and plan: Continue acyclovir to treat viral meningitis. Dr. Shah has discontinued Rocephin and vancomycin Current Visit: Yes (2) Hypertension Status: Acute Assessment and plan: Controlled Current Visit: Yes (3) Diabetes Status: Acute Assessment and plan: hemoglobin A1c 9.1, ISC, decrease glyburide to 2.5 bid and cont januvia Current Visit: Yes (4) Headache Status: Acute Assessment and plan: Demerol as needed headache. Current Visit: Yes (5) Acute renal failure Status: Acute Assessment and plan: HL IVF. Current Visit: Yes Hospitalist: Subjective Interval history: Appreciate help from Dr. Kang and Dr. Shah. Patient is starting to feel better she got up and took a shower this morning but then was worn out. We helped her back to bed. She says her neck is still stiff but she is feeling better. Exam - Constitutional Vitals: Period Temp Pulse Resp BP Sys/Gross Pulse Ox Last 24 Hr 97.6 F-99.5 F 81-92 18-21 117-147/52-71 95-99 Exam: Heart Rate-[RRR] Lungs-[CTAB] GI-[+bs soft, NT, obese ] Ext-[no edema] Neuro [Motor 5/5], [alert and oriented times 3] psych [normal mood and affect] General [no acute distress Results - Labs CBC & BMP: 04/19/17 06:11 04/19/17 06:11 Lab Results: I have reviewed the past 24 hour labs Labs: CSF culture no growth Quality Measures - Stroke Symptom Onset Unknown: No
[2017-04-20] MEDS: ACYCLOVIR INJ 900 MG in SODIUM CHLORIDE 0.9% 250 ML IV SCH ×3 (01:23→17:06)
[2017-04-20] MEDS: ACETAMINOPHEN 325 MG TABLET PO PRN (01:44)
[2017-04-20 04:49] LABS: Basophils % 0.3 % (0.0-0.8); Eosinophils # 0.4 10*3/uL (0.0-0.87); Eosinophils % 4.4 % (0.00-10.9); Hemoglobin 9.3 GM/DL (12.0-16.0); Immature Granulocytes % 1.7 %; Immature Granulocytes Absolute 0.16 #; Lymphocytes # 1.6 10*3/uL (1.4-4.0); Lymphocytes % 16.8 % (21.3-54.2); Mean Corpuscular HGB Conc 33.2 GM/DL (32-36); Mean Corpuscular Hemoglobin 29 PG (27-34); Mean Corpuscular Volume 87.5 FL (87-102); Mean Platelet Volume 11.1 FL (9.6-12.0); Monocytes # 0.6 10*3/uL (0.11-0.8); Monocytes % 6.7 % (1.7-12.7); Neutrophils # 6.5 10*3/uL (1.4-7.4); Neutrophils % 70.1 % (38.7-73.9); Platelet Count 206 T/CUMM (130-400); Red Cell Distribution Width 12.9 % (9.3-17.3); White Blood Count 9.2 T/CUMM (4-12)
[2017-04-20 05:18] LABS: Calcium 8.7 MG/DL (8.5-10.1); Magnesium 1.9 MG/DL (1.8-2.4); Osmolality,Calculated 287.3 MOS/KG (273-304); Potassium 4.5 MMOL/L (3.5-5.1)
[2017-04-20] MEDS: CYCLOBENZAPRINE 10 MG TABLET PO SCH ×3 (08:33→20:13)
[2017-04-20] MEDS: INSULIN REGULAR 100 UNIT/ML SUBCUT SCH ×4 (08:33→20:50)
[2017-04-20] MEDS: LISINOPRIL 20 MG TABLET PO SCH (08:33)
[2017-04-20] MEDS: sitaGLIPtin 100 MG TABLET PO SCH (08:33)
[2017-04-20] MEDS: glipiZIDE 5 MG TABLET PO SCH ×2 (08:33→16:20)
[2017-04-20] MEDS: PANTOPRAZOLE 40 MG TABLET PO SCH (08:34)
[2017-04-20] MEDS ORDERED: BISACODYL 5 MG TABLET PO ONE (10:57)
--- NOTE | 2017-04-20 13:58 | Hospitalist Progress Note ---
Assessment and Plan (1) Meningitis Status: Acute Assessment and plan: Continue acyclovir to treat viral meningitis. Dr. Shah and Dr. Kang following Current Visit: Yes (2) Hypertension Status: Acute Assessment and plan: Controlled Current Visit: Yes (3) Diabetes Status: Acute Assessment and plan: hemoglobin A1c 9.1, ISC, decrease glyburide to 2.5 bid and cont januvia Current Visit: Yes (4) Headache Status: Acute Assessment and plan: Demerol as needed headache. Current Visit: Yes (5) Acute renal failure Status: Acute Assessment and plan: HL IVF. Current Visit: Yes Hospitalist: Subjective Interval history: Patient feeling better every day. Her neck stiffness is a little bit better but her headaches persist. I warned her that the headaches may continue for up to 4 weeks. Exam - Constitutional Vitals: Period Temp Pulse Resp BP Sys/Gross Pulse Ox Last 24 Hr 97.5 F-99.0 F 80-88 18-20 129-144/59-72 84-99 Exam: Heart Rate-[RRR] Lungs-[CTAB] GI-[+bs soft, NT, obese Ext-[no edema] Neuro [Motor 5/5], [alert and oriented times 3] psych [normal mood and affect] General [no acute distress Results - Labs CBC & BMP: 04/20/17 03:42 04/20/17 03:42 Lab Results: I have reviewed the past 24 hour labs Quality Measures - Stroke Symptom Onset Unknown: No
[2017-04-20] MEDS ORDERED: KETOROLAC 30 MG/1 ML VIAL IV ONE (13:59)
[2017-04-20] MEDS: metFORMIN 500 MG TABLET PO SCH (16:20)
[2017-04-20] MEDS: ATORVASTATIN 40 MG TABLET PO SCH (20:12)
[2017-04-21] MEDS: ACYCLOVIR INJ 900 MG in SODIUM CHLORIDE 0.9% 250 ML IV SCH ×3 (01:32→18:34)
[2017-04-21 04:26] LABS: Basophils % 0.5 % (0.0-0.8); Eosinophils # 0.6 10*3/uL (0.0-0.87); Eosinophils % 7.2 % (0.00-10.9); Hematocrit 28.1 VOL% (35.7-47.0); Hemoglobin 9.2 GM/DL (12.0-16.0); Immature Granulocytes % 2.1 %; Immature Granulocytes Absolute 0.16 #; Lymphocytes # 1.8 10*3/uL (1.4-4.0); Lymphocytes % 22.9 % (21.3-54.2); Mean Corpuscular HGB Conc 32.7 GM/DL (32-36); Mean Corpuscular Hemoglobin 29 PG (27-34); Mean Corpuscular Volume 88.6 FL (87-102); Mean Platelet Volume 10.6 FL (9.6-12.0); Monocytes # 0.5 10*3/uL (0.11-0.8); Monocytes % 7.1 % (1.7-12.7); Neutrophils # 4.6 10*3/uL (1.4-7.4); Neutrophils % 60.2 % (38.7-73.9); Platelet Count 213 T/CUMM (130-400); Red Blood Count 3.17 MC/CUMM (3.8-5.5); Red Cell Distribution Width 12.9 % (9.3-17.3); White Blood Count 7.6 T/CUMM (4-12)
[2017-04-21 05:04] LABS: Calcium 8.7 MG/DL (8.5-10.1); Potassium 4.4 MMOL/L (3.5-5.1)
[2017-04-21] MEDS: INSULIN REGULAR 100 UNIT/ML SUBCUT SCH ×4 (09:11→20:37)
[2017-04-21] MEDS: metFORMIN 500 MG TABLET PO SCH (09:12)
[2017-04-21] MEDS: glipiZIDE 5 MG TABLET PO SCH ×2 (09:12→15:45)
[2017-04-21] MEDS: ACETAMINOPHEN 325 MG TABLET PO PRN (09:12)
[2017-04-21] MEDS: LISINOPRIL 20 MG TABLET PO SCH (09:13)
[2017-04-21] MEDS: sitaGLIPtin 100 MG TABLET PO SCH (09:13)
[2017-04-21] MEDS: PANTOPRAZOLE 40 MG TABLET PO SCH (09:13)
[2017-04-21] MEDS: CYCLOBENZAPRINE 10 MG TABLET PO SCH ×3 (09:13→20:32)
[2017-04-21] MEDS ORDERED: MAGNESIUM CITRATE 300 ML BOTTLE PO ONE (10:40)
--- NOTE | 2017-04-21 14:36 | Hospitalist Progress Note ---
Assessment and Plan (1) Meningitis Status: Acute Assessment and plan: Continue acyclovir to treat viral meningitis. Viral culture and HSV pending, Dr. Shah and Dr. Kang following Current Visit: Yes (2) Hypertension Status: Acute Assessment and plan: Uncontrolled switch to Coreg and stop lisinopril until creatinine. Current Visit: Yes (3) Diabetes Status: Acute Assessment and plan: hemoglobin A1c 9.1, ISC, continue glyburide to 2.5 bid and januvia Current Visit: Yes (4) Headache Status: Acute Assessment and plan: Demerol as needed headache. Current Visit: Yes (5) Acute renal failure Status: Acute Assessment and plan: Restart hydration. Hold lisinopril until creatinine improves Current Visit: Yes Hospitalist: Subjective Interval history: She continued to have more mobility with her neck. Her headaches are easing up. She still has not had a bowel movement and asked for something stronger than Dulcolax Exam - Constitutional Vitals: Period Temp Pulse Resp BP Sys/Gross Pulse Ox Last 24 Hr 96.7 F-98.7 F 75-92 16-20 106-190/59-79 94-100 Exam: Heart Rate-[RRR] Lungs-[CTAB] GI-[+bs soft, NT, obese Ext-[no edema] Neuro [Motor 5/5], [alert and oriented times 3] psych [normal mood and affect] General [no acute distress Results - Labs CBC & BMP: 04/21/17 03:33 04/21/17 03:33 Lab Results: I have reviewed the past 24 hour labs Labs: CSF cultures negative no growth., Blood cultures negative no growth HSV on CSF fluid pending. Test is being withdrawn verified today Quality Measures - Stroke Symptom Onset Unknown: No
[2017-04-21] MEDS: CARVEDILOL 6.25 MG TABLET PO SCH ×2 (17:09→20:38)
[2017-04-21] MEDS: SODIUM CHLORIDE 0.45% 1,000 ML IV SCH (17:11)
[2017-04-21] MEDS: ATORVASTATIN 40 MG TABLET PO SCH (20:38)
[2017-04-21] MEDS ORDERED: LISINOPRIL 20 MG TABLET PO SCH (21:00)
[2017-04-22] MEDS: ACYCLOVIR INJ 900 MG in SODIUM CHLORIDE 0.9% 250 ML IV SCH ×3 (01:38→21:08)
--- NOTE | 2017-04-22 08:48 | Neurology Progress Note ---
Neurology - PN : Subjective Interval history: Patient seems to be doing much better overall. Headaches has improved significantly. Slept well last night. Getting up and walking around. Reported that she is almost 70-80% improved. Herpes PCR is still pending Exam (Progress Note) - Constitutional Vitals: Period Temp Pulse Resp BP Sys/Gross Pulse Ox Last 24 Hr 96.6 F-97.4 F 70-83 18-20 113-146/51-72 96-100 Exam: GENERAL: Patient is in no acute distress. NECK: Neck is stiff. There is no JVD. No carotid bruits present. No thyroid masses. CVS: First and second heart sounds are normal. There is no S3 present. Regular rate and rhythm. RESPIRATORY: Lungs are clear to auscultation without any rales or rhonchi. ABDOMEN: Soft and non-tender. Bowel sounds are present. There is no hepatosplenomegaly. EXT: There is no palpable edema. Peripheral pulses are present. Skin: No rashes Central Nervous system: General: Alert, awake and Oriented x 3 Speech: Fluent Comprehension: Intact and normal Facial expressions: Normal Cranial Nerves: CN1/Olfactory: Normal CN II/ Optic: Normal, Visual Lacy unreliable CN III, and : MARISOL & EOMI CN V: Normal & intact CN VII: face is symmetric CNVIII: Normal CN XI/X/XI/XII: Intact and Normal Motor: Bulk and Tone is normal. Strength in the right 5/5 Strength in the left 5/5 Sensory: Grossly intact for all the modalities of PP, LT and temp sense Reflexes: 1+ and symmetrical Cerebellar function: Normal finger to nose and heel to drake testing. Toes: Equivocal Gait: Not tested at this time but getting up and walking Results - Labs CBC & BMP: 04/21/17 03:33 04/21/17 03:33 Assessment and Plan (1) Viral meningitis Status: Acute Assessment and plan: Continue acyclovir for now. Today is the fifth day of acyclovir IV Awaiting PCR report Current Visit: Yes Quality Measures - Stroke Symptom Onset Unknown: No
[2017-04-22] MEDS: INSULIN REGULAR 100 UNIT/ML SUBCUT SCH ×4 (09:45→22:53)
[2017-04-22] MEDS: glipiZIDE 5 MG TABLET PO SCH ×2 (09:46→16:28)
[2017-04-22] MEDS: CARVEDILOL 6.25 MG TABLET PO SCH ×2 (09:47→21:08)
[2017-04-22] MEDS: sitaGLIPtin 100 MG TABLET PO SCH (09:47)
[2017-04-22] MEDS: CYCLOBENZAPRINE 10 MG TABLET PO SCH ×4 (10:44→21:15)
[2017-04-22] MEDS: PANTOPRAZOLE 40 MG TABLET PO SCH (10:44)
--- NOTE | 2017-04-22 12:42 | Hospitalist Progress Note ---
Assessment and Plan (1) Meningitis Status: Acute Assessment and plan: on acyclovir; being followed by neurology; await HSV PCR Current Visit: Yes (2) Hypertension Status: Acute Assessment and plan: controlled; continue current regimen Current Visit: Yes (3) Diabetes Status: Acute Assessment and plan: uncontrolled; will increase glipizide Current Visit: Yes (4) Headache Status: Acute Current Visit: Yes (5) Acute renal insufficiency Status: Acute Assessment and plan: monitor; f/u Current Visit: Yes Hospitalist: Subjective Interval history: Patient states that her headache and neck stiffness have improved. She notes that the course has been slow. She is eating well. She denies any n/v/vision changes. She notes that she is weak. Exam - Constitutional Vitals: Period Temp Pulse Resp BP Sys/Gross Pulse Ox Last 24 Hr 96.6 F-98.1 F 70-83 18-20 113-146/51-72 96-98 - Eye Eye exam: Present: EOMI Pupils: Present: MARISOL - Neck Neck exam: Present: normal inspection, meningismus - Respiratory Respiratory exam: Present: clear to auscultation bilaterally - Cardiovascular Cardiovascular exam: Present: regular rate and rhythm - GI/Abdominal GI/Abdominal exam: Present: normal bowel sounds - Extremities Exam Extremities exam: Present: other (no c/c/e) Results - Labs CBC & BMP: 04/21/17 03:33 04/21/17 03:33 Quality Measures - Stroke Symptom Onset Unknown: No
--- NOTE | 2017-04-22 15:42 | Infectious Disease Progress ---
Assessment and Plan (1) Fever Status: Acute Assessment and plan: Possible viral illness with malaise anorexia present for the past week. Supportive care. Current Visit: Yes (2) Meningitis Status: Acute Assessment and plan: CSF opening pressure was elevated, she has mildly elevated CSF protein and mild lymphocytic pleocytosis. Possible viral meningitis, may be herpetic. Recommendations: Continue acyclovir pending receipt of CSF HSV PCR result; dose will be decreased given acute worsening of renal function. I do not want to stop acyclovir until we officially rule out HSV meningitis, since the patient is still having symptoms. Current Visit: Yes (3) Cough Status: Acute Assessment and plan: Possible viral illness. Current Visit: No (4) Acute renal insufficiency Status: Acute Assessment and plan: Renal function initially improved since admission, but has worsened again, possibly related to the acyclovir. Recommendations: acyclovir dose will be reduced. Continue to monitor renal function closely, check again tomorrow. Current Visit: Yes Infectious Disease - PN: Subj Interval history: Patient slowly getting better with improving headache and neck stiffness. Her appetite has come back, no nausea vomiting or diarrhea. She has not had any fever. Tolerating acyclovir without any difficulties. Infectious Disease Exam (PN) - Constitutional Vitals: Temp Pulse Resp BP Pulse Ox 98.1 F 77 20 130/65 98 04/22/17 11:58 04/22/17 11:58 04/22/17 11:58 04/22/17 11:58 04/22/17 11:58 General appearance: over weight Exam: General appearance: Less ill but still with neck stiffness - Eye Eye exam: Present: EOMI. no icterus Pupils: Present: MARISOL - ENT ENT exam: no oropharyhgeal exudates - Neck Neck exam: Still not quite supple but more so than last week - Respiratory Respiratory exam: vesicular BS, no crepitations or wheezes - Cardiovascular Cardiovascular exam: regular rate and rhythm, no murmurs - GI/Abdominal GI/Abdominal exam: normal bowel sounds, soft, non-tender, no organomegaly or mass - Extremities Exam Extremities exam: no edema - Skin Skin exam: no rash Results - Labs CBC & BMP: 04/21/17 03:33 04/21/17 03:33 Lab Results: I have reviewed the past 24 hour labs Quality Measures - Stroke Symptom Onset Unknown: No
[2017-04-22] MEDS: SODIUM CHLORIDE 0.45% 1,000 ML IV SCH (18:36)
[2017-04-22] MEDS: ATORVASTATIN 40 MG TABLET PO SCH (21:08)
[2017-04-23 05:59] LABS: Basophils % 0.3 % (0.0-0.8); Eosinophils # 0.4 10*3/uL (0.0-0.87); Hematocrit 28.6 VOL% (35.7-47.0); Hemoglobin 9.5 GM/DL (12.0-16.0); Immature Granulocytes % 3.6 %; Immature Granulocytes Absolute 0.25 #; Lymphocytes # 1.5 10*3/uL (1.4-4.0); Lymphocytes % 22.3 % (21.3-54.2); Mean Corpuscular HGB Conc 33.2 GM/DL (32-36); Mean Corpuscular Hemoglobin 30 PG (27-34); Mean Corpuscular Volume 89.1 FL (87-102); Mean Platelet Volume 10.3 FL (9.6-12.0); Monocytes # 0.5 10*3/uL (0.11-0.8); Monocytes % 6.9 % (1.7-12.7); Neutrophils # 4.2 10*3/uL (1.4-7.4); Neutrophils % 60.9 % (38.7-73.9); Platelet Count 248 T/CUMM (130-400); Red Blood Count 3.21 MC/CUMM (3.8-5.5); Red Cell Distribution Width 12.9 % (9.3-17.3); White Blood Count 6.9 T/CUMM (4-12)
[2017-04-23 06:34] LABS: Calcium 8.5 MG/DL (8.5-10.1); Osmolality,Calculated 289.3 MOS/KG (273-304); Potassium 4.8 MMOL/L (3.5-5.1)
[2017-04-23] MEDS: CARVEDILOL 6.25 MG TABLET PO SCH ×2 (08:35→20:39)
[2017-04-23] MEDS: glipiZIDE 5 MG TABLET PO SCH ×2 (08:36→16:10)
[2017-04-23] MEDS: INSULIN REGULAR 100 UNIT/ML SUBCUT SCH ×4 (08:36→20:50)
[2017-04-23] MEDS: PANTOPRAZOLE 40 MG TABLET PO SCH (08:36)
[2017-04-23] MEDS: sitaGLIPtin 100 MG TABLET PO SCH (08:36)
[2017-04-23] MEDS: CYCLOBENZAPRINE 10 MG TABLET PO SCH ×3 (10:28→20:44)
[2017-04-23] MEDS ORDERED: BISACODYL 5 MG TABLET PO ONE (10:52)
[2017-04-23] MEDS ORDERED: DOCUSATE SODIUM 100 MG CAPSULE PO SCH (11:00)
[2017-04-23] MEDS: ACYCLOVIR INJ 900 MG in SODIUM CHLORIDE 0.9% 250 ML IV SCH (12:45)
[2017-04-23] MEDS: SODIUM CHLORIDE 0.45% 1,000 ML IV SCH ×2 (13:13→20:38)
--- NOTE | 2017-04-23 13:41 | Hospitalist Progress Note ---
Assessment and Plan (1) Meningitis Status: Acute Assessment and plan: being treated for suspected viral meningitis; on acyclovir; being followed by neurology; await HSV PCR Current Visit: Yes (2) Hypertension Status: Acute Assessment and plan: overall controlled; continue current regimen Current Visit: Yes (3) Diabetes Status: Acute Assessment and plan: sugars still uncontrolled; glipizide increased on yesterday; may need to increase it if sugars remain uncontrolled; monitor GFR while on jauniva Current Visit: Yes (4) Headache Status: Acute Current Visit: Yes (5) Acute renal insufficiency Status: Acute Assessment and plan: improving; will give gentle fluids; continue to monitor Current Visit: Yes (6) Constipation Status: Acute Assessment and plan: bowel regimen Current Visit: Yes (7) Anemia Status: Chronic Assessment and plan: HCT stable; monitor Current Visit: Yes Hospitalist: Subjective Interval history: Patient notes improvement in her neck stiffness. She notes some constipation. Exam - Constitutional Vitals: Period Temp Pulse Resp BP Sys/Gross Pulse Ox Last 24 Hr 96.7 F-99.0 F 75-86 16-20 130-150/65-80 97-98 General appearance: no acute distress - Eye Eye exam: Present: EOMI Pupils: Present: MARISOL - Neck Neck exam: Present: meningismus - Respiratory Respiratory exam: Present: clear to auscultation bilaterally - Cardiovascular Cardiovascular exam: Present: regular rate and rhythm - GI/Abdominal GI/Abdominal exam: Present: normal bowel sounds - Neurological Exam Neurological exam: Present: oriented X3 - Psychiatric Psychiatric exam: Present: normal affect, normal mood Results - Labs CBC & BMP: 04/23/17 05:26 04/23/17 05:26 Quality Measures - Stroke Symptom Onset Unknown: No
--- NOTE | 2017-04-23 14:16 | Neurology Progress Note ---
Neurology - PN : Subjective Interval history: Patient seems to be doing much better. No headaches reported. Getting up and walking around. Eating good. Sleeping good. Exam (Progress Note) - Constitutional Vitals: Period Temp Pulse Resp BP Sys/Gross Pulse Ox Last 24 Hr 96.7 F-99.0 F 75-86 16-20 130-150/65-80 97-98 Exam: GENERAL: Patient is in no acute distress. NECK: Neck is stiff. There is no JVD. No carotid bruits present. No thyroid masses. CVS: First and second heart sounds are normal. There is no S3 present. Regular rate and rhythm. RESPIRATORY: Lungs are clear to auscultation without any rales or rhonchi. ABDOMEN: Soft and non-tender. Bowel sounds are present. There is no hepatosplenomegaly. EXT: There is no palpable edema. Peripheral pulses are present. Skin: No rashes Central Nervous system: General: Alert, awake and Oriented x 3 Speech: Fluent Comprehension: Intact and normal Facial expressions: Normal Cranial Nerves: CN1/Olfactory: Normal CN II/ Optic: Normal, Visual Lacy unreliable CN III, and : MARISOL & EOMI CN V: Normal & intact CN VII: face is symmetric CNVIII: Normal CN XI/X/XI/XII: Intact and Normal Motor: Bulk and Tone is normal. Strength in the right 5/5 Strength in the left 5/5 Sensory: Grossly intact for all the modalities of PP, LT and temp sense Reflexes: 1+ and symmetrical Cerebellar function: Normal finger to nose and heel to drake testing. Toes: Equivocal Gait: Able to get up and walk without assistance. Results - Labs CBC & BMP: 04/23/17 05:26 04/23/17 05:26 Assessment and Plan (1) Viral meningitis Status: Acute Assessment and plan: Continue acyclovir for now. Still awaiting herpes PCR report Current Visit: Yes Quality Measures - Stroke Symptom Onset Unknown: No
--- NOTE | 2017-04-23 17:11 | Infectious Disease Progress ---
Assessment and Plan (1) Fever Status: Acute Assessment and plan: Possible viral illness with malaise anorexia present for the past week. Supportive care. Current Visit: Yes (2) Meningitis Status: Acute Assessment and plan: CSF opening pressure was elevated, she has mildly elevated CSF protein and mild lymphocytic pleocytosis. Possible viral meningitis, may be herpetic. Recommendations: Continue acyclovir pending receipt of CSF HSV PCR result. Current Visit: Yes (3) Acute renal insufficiency Status: Acute Assessment and plan: Renal function initially improved again today. Continue to monitor on acyclovir. Current Visit: Yes Infectious Disease - PN: Subj Interval history: Headache almost completely resolved but she still has a bit of neck pain. She is ambulating now, she has not had fever. She is eating better, minimal cough. Infectious Disease Exam (PN) - Constitutional Vitals: Temp Pulse Resp BP Pulse Ox 97.1 F L 76 20 153/70 98 04/23/17 16:00 04/23/17 16:00 04/23/17 16:00 04/23/17 16:00 04/23/17 16:00 General appearance: no acute distress Exam: General appearance: Looks better overall - Eye Eye exam: Present: EOMI. no icterus Pupils: Present: MARISOL - ENT ENT exam: no oral exudates - Neck Neck exam: Becoming more supple - Respiratory Respiratory exam: vesicular BS, no crepitations or wheezes - Cardiovascular Cardiovascular exam: regular rate and rhythm, no murmurs - GI/Abdominal GI/Abdominal exam: normal bowel sounds, soft, non-tender, no organomegaly or mass - Extremities Exam Extremities exam: no edema - Skin Skin exam: no rash Results - Labs CBC & BMP: 04/23/17 05:26 04/23/17 05:26 Lab Results: I have reviewed the past 24 hour labs Quality Measures - Stroke Symptom Onset Unknown: No
[2017-04-23] MEDS: ATORVASTATIN 40 MG TABLET PO SCH (20:39)
[2017-04-24] MEDS: ACYCLOVIR INJ 900 MG in SODIUM CHLORIDE 0.9% 250 ML IV SCH ×2 (00:01→13:52)
[2017-04-24] MEDS: SODIUM CHLORIDE 0.45% 1,000 ML IV SCH ×2 (02:55→13:53)
[2017-04-24] MEDS ORDERED: LACTULOSE 20 GM/30 ML UDCUP PO ONE (09:22)
[2017-04-24] MEDS: PANTOPRAZOLE 40 MG TABLET PO SCH (09:38)
[2017-04-24] MEDS: INSULIN REGULAR 100 UNIT/ML SUBCUT SCH ×4 (09:38→21:00)
[2017-04-24] MEDS: sitaGLIPtin 100 MG TABLET PO SCH (09:38)
[2017-04-24] MEDS: CYCLOBENZAPRINE 10 MG TABLET PO SCH ×3 (09:38→21:02)
[2017-04-24] MEDS: CARVEDILOL 6.25 MG TABLET PO SCH ×2 (09:38→21:01)
[2017-04-24] MEDS: glipiZIDE 5 MG TABLET PO SCH (09:39)
--- NOTE | 2017-04-24 13:19 | Hospitalist Progress Note ---
Assessment and Plan (1) Meningitis Status: Acute Assessment and plan: being treated for suspected viral meningitis; on acyclovir til Saturday; being followed by neurology and ID; await HSV PCR. Current Visit: Yes (2) Hypertension Status: Acute Assessment and plan: stable Current Visit: Yes (3) Acute renal insufficiency Status: Acute Assessment and plan: most likely due to acyclovir. Continue hydration, acyclovir hopefully will end on Saturday BMP in am Current Visit: Yes (4) Diabetes Status: Acute Assessment and plan: will increase glipizide to 10mg bid,follow response. [id number] Current Visit: Yes (5) Anemia Status: Chronic Assessment and plan: will continue to follow H/H. SCDs as DVT prophylaxis Current Visit: Yes (6) Headache Status: Acute Assessment and plan: improving Current Visit: Yes (7) Hyperlipidemia Status: Acute Assessment and plan: continue with statins Current Visit: Yes Hospitalist: Subjective Interval history: Patient seen. She states she feels much better, her headache is almost completely resolved. Exam - Constitutional Vitals: Period Temp Pulse Resp BP Sys/Gross Pulse Ox Last 24 Hr 96.8 F-98.1 F 73-91 18-20 114-154/62-80 95-99 General appearance: no acute distress - Head Head exam: Present: normal inspection - Respiratory Respiratory exam: Present: clear to auscultation bilaterally - Cardiovascular Cardiovascular exam: Present: regular rate and rhythm - GI/Abdominal GI/Abdominal exam: Present: normal bowel sounds - Extremities Exam Extremities exam: Present: normal inspection Results - Labs CBC & BMP: 04/23/17 05:26 04/23/17 05:26 Lab Results: I have reviewed the past 24 hour labs Quality Measures - Stroke Symptom Onset Unknown: No
--- NOTE | 2017-04-24 14:12 | Neurology Progress Note ---
Neurology - PN : Subjective Interval history: Stable neurologically. No new problems reported. No headaches reported. Herpes PCR is still pending. Exam (Progress Note) - Constitutional Vitals: Period Temp Pulse Resp BP Sys/Gross Pulse Ox Last 24 Hr 96.8 F-98.1 F 73-91 18-20 114-154/62-80 95-99 Exam: GENERAL: Patient is in no acute distress. NECK: Neck is stiff. There is no JVD. No carotid bruits present. No thyroid masses. CVS: First and second heart sounds are normal. There is no S3 present. Regular rate and rhythm. RESPIRATORY: Lungs are clear to auscultation without any rales or rhonchi. ABDOMEN: Soft and non-tender. Bowel sounds are present. There is no hepatosplenomegaly. EXT: There is no palpable edema. Peripheral pulses are present. Skin: No rashes Central Nervous system: General: Alert, awake and Oriented x 3 Speech: Fluent Comprehension: Intact and normal Facial expressions: Normal Cranial Nerves: CN1/Olfactory: Normal CN II/ Optic: Normal, Visual Lacy unreliable CN III, and : MARISLO & EOMI CN V: Normal & intact CN VII: face is symmetric CNVIII: Normal CN XI/X/XI/XII: Intact and Normal Motor: Bulk and Tone is normal. Strength in the right 5/5 Strength in the left 5/5 Sensory: Grossly intact for all the modalities of PP, LT and temp sense Reflexes: 1+ and symmetrical Cerebellar function: Normal finger to nose and heel to drake testing. Toes: Equivocal Gait: Able to get up and walk without assistance. Results - Labs CBC & BMP: 04/23/17 05:26 04/23/17 05:26 Assessment and Plan (1) Viral meningitis Status: Acute Assessment and plan: Continue acyclovir for now. Still awaiting herpes PCR report Patient is doing really well clinically. Current Visit: Yes Quality Measures - Stroke Symptom Onset Unknown: No
--- NOTE | 2017-04-24 14:51 | Infectious Disease Progress ---
Assessment and Plan (1) Fever Status: Acute Assessment and plan: Possible viral illness with malaise anorexia present for the past week. Resolved. Current Visit: Yes (2) Meningitis Status: Acute Assessment and plan: CSF opening pressure was elevated, she has mildly elevated CSF protein and mild lymphocytic pleocytosis. Possible viral meningitis, may be herpetic. Recommendations: Continue acyclovir and follow-up on CSF HSV PCR result. Current Visit: Yes (3) Acute renal insufficiency Status: Acute Assessment and plan: Renal function initially improved again today. Continue to monitor on acyclovir. Check with renal function tomorrow. Current Visit: Yes Infectious Disease - PN: Subj Interval history: Patient steadily improving, neck definitely no longer stiff. Minimal headache today and for increased compared to yesterday. No fever. Eating well. Infectious Disease Exam (PN) - Constitutional Vitals: Temp Pulse Resp BP Pulse Ox 98.1 F 91 H 18 114/64 98 04/24/17 11:02 04/24/17 11:02 04/24/17 11:02 04/24/17 11:02 04/24/17 11:02 General appearance: no acute distress Exam: General appearance: Looks better overall, sitting up at side of bed - Eye Eye exam: Present: EOMI. no icterus Pupils: Present: MARISOL - ENT ENT exam: no oral exudates - Neck Neck exam: supple - Respiratory Respiratory exam: vesicular BS, no crepitations or wheezes - Cardiovascular Cardiovascular exam: regular rate and rhythm, no murmurs - GI/Abdominal GI/Abdominal exam: normal bowel sounds, soft, non-tender, no organomegaly or mass - Extremities Exam Extremities exam: no edema - Skin Skin exam: no rash Results - Labs CBC & BMP: 04/23/17 05:26 04/23/17 05:26 Lab Results: I have reviewed the past 24 hour labs Quality Measures - Stroke Symptom Onset Unknown: No
[2017-04-24] MEDS: glipiZIDE 10 MG TABLET PO SCH (16:44)
[2017-04-24] MEDS: ATORVASTATIN 40 MG TABLET PO SCH (21:01)
[2017-04-25] MEDS: ACYCLOVIR INJ 900 MG in SODIUM CHLORIDE 0.9% 250 ML IV SCH ×2 (00:15→13:40)
[2017-04-25 05:21] LABS: Basophils % 0.4 % (0.0-0.8); Eosinophils # 0.3 10*3/uL (0.0-0.87); Eosinophils % 4.4 % (0.00-10.9); Hematocrit 29.1 VOL% (35.7-47.0); Hemoglobin 9.7 GM/DL (12.0-16.0); Immature Granulocytes % 3.8 %; Immature Granulocytes Absolute 0.26 #; Lymphocytes # 1.7 10*3/uL (1.4-4.0); Lymphocytes % 24.9 % (21.3-54.2); Mean Corpuscular HGB Conc 33.3 GM/DL (32-36); Mean Corpuscular Hemoglobin 29 PG (27-34); Mean Corpuscular Volume 88.2 FL (87-102); Mean Platelet Volume 10.4 FL (9.6-12.0); Monocytes # 0.5 10*3/uL (0.11-0.8); Neutrophils % 59.5 % (38.7-73.9); Platelet Count 249 T/CUMM (130-400); White Blood Count 6.8 T/CUMM (4-12)
[2017-04-25 05:50] LABS: Calcium 8.4 MG/DL (8.5-10.1); Potassium 4.4 MMOL/L (3.5-5.1)
[2017-04-25] MEDS: sitaGLIPtin 100 MG TABLET PO SCH (08:22)
[2017-04-25] MEDS: glipiZIDE 10 MG TABLET PO SCH ×2 (08:22→16:24)
[2017-04-25] MEDS: INSULIN REGULAR 100 UNIT/ML SUBCUT SCH ×4 (08:22→20:15)
[2017-04-25] MEDS: SODIUM CHLORIDE 0.45% 1,000 ML IV SCH (08:22)
[2017-04-25] MEDS: PANTOPRAZOLE 40 MG TABLET PO SCH (08:22)
[2017-04-25] MEDS: CARVEDILOL 6.25 MG TABLET PO SCH ×2 (08:23→20:15)
[2017-04-25] MEDS: CYCLOBENZAPRINE 10 MG TABLET PO SCH ×3 (08:24→21:58)
[2017-04-25] MEDS ORDERED: MAGNESIUM CITRATE 300 ML BOTTLE PO ONE (10:51)
--- NOTE | 2017-04-25 13:49 | Hospitalist Progress Note ---
Assessment and Plan (1) Meningitis Status: Acute Assessment and plan: being treated for suspected viral meningitis; symptoms have improved. Continue IV acyclovir till Saturday; being followed by neurology and ID; await HSV PCR. Current Visit: Yes (2) Hypertension Status: Acute Assessment and plan: stable Current Visit: Yes (3) Acute renal insufficiency Status: Acute Assessment and plan: most likely due to acyclovir. Continue hydration, acyclovir hopefully will end on Saturday BMP in am Current Visit: Yes (4) Diabetes Status: Acute Assessment and plan: will increase glipizide to 15mg bid,follow response. [id number] Current Visit: Yes (5) Anemia Status: Chronic Assessment and plan: will continue to follow H/H. SCDs as DVT prophylaxis Current Visit: Yes (6) Headache Status: Acute Assessment and plan: improving Current Visit: Yes (7) Hyperlipidemia Status: Acute Assessment and plan: continue with statins Current Visit: Yes Hospitalist: Subjective Interval history: patient was seen sitting up on a chair. She states she feels much better. Neck stiffness has resolved and headache is improving. Exam - Constitutional Vitals: Period Temp Pulse Resp BP Sys/Gross Pulse Ox Last 24 Hr 97 F-98.3 F 72-82 16-20 129-143/60-69 94-100 General appearance: no acute distress - Head Head exam: Present: normal inspection - Respiratory Respiratory exam: Present: clear to auscultation bilaterally - Cardiovascular Cardiovascular exam: Present: regular rate and rhythm - GI/Abdominal GI/Abdominal exam: Present: normal bowel sounds - Extremities Exam Extremities exam: Present: normal inspection Results - Labs CBC & BMP: 04/25/17 04:32 04/25/17 04:32 Lab Results: I have reviewed the past 24 hour labs Quality Measures - Stroke Symptom Onset Unknown: No
[2017-04-25] MEDS ORDERED: LACTULOSE 20 GM/30 ML UDCUP PO PRN (13:57)
--- NOTE | 2017-04-25 14:20 | Infectious Disease Progress ---
Assessment and Plan (1) Fever Status: Acute Assessment and plan: Possible viral illness with malaise anorexia present for the past week. Resolved. Current Visit: Yes (2) Meningitis Status: Acute Assessment and plan: CSF opening pressure was elevated, she has mildly elevated CSF protein and mild lymphocytic pleocytosis. Possible viral meningitis, may be herpetic. Recommendations: Continue acyclovir and follow-up on CSF HSV PCR result. Lab to call [place] to see if result ready. Current Visit: Yes (3) Acute renal insufficiency Status: Acute Assessment and plan: Renal function initially improved further today so I will increased acyclovir dose back to q8h. Current Visit: Yes Infectious Disease - PN: Subj Interval history: Slight headache today, otherwise doing well. Infectious Disease Exam (PN) - Constitutional Vitals: Temp Pulse Resp BP Pulse Ox 97.2 F L 72 18 140/60 100 04/25/17 12:00 04/25/17 12:00 04/25/17 12:00 04/25/17 12:00 04/25/17 12:00 General appearance: no acute distress Exam: General appearance: met ambulating - Eye Eye exam: Present: EOMI. no icterus Pupils: Present: MARISOL - ENT ENT exam: no oral exudates - Neck Neck exam: supple - Respiratory Respiratory exam: vesicular BS, no crepitations or wheezes - Cardiovascular Cardiovascular exam: regular rate and rhythm, no murmurs - GI/Abdominal GI/Abdominal exam: normal bowel sounds, soft, non-tender, no organomegaly or mass - Extremities Exam Extremities exam: no edema - Skin Skin exam: no rash Results - Labs CBC & BMP: 04/25/17 04:32 04/25/17 04:32 Lab Results: I have reviewed the past 24 hour labs (called lab and CSF HSV not yet ready) Quality Measures - Stroke Symptom Onset Unknown: No
[2017-04-25] MEDS: ATORVASTATIN 40 MG TABLET PO SCH (20:15)
[2017-04-25] MEDS ORDERED: ACYCLOVIR INJ 900 MG in SODIUM CHLORIDE 0.9% 250 ML IV SCH (22:00)
[2017-04-26 05:46] LABS: Basophils % 0.5 % (0.0-0.8); Eosinophils # 0.3 10*3/uL (0.0-0.87); Hematocrit 28.7 VOL% (35.7-47.0); Hemoglobin 9.5 GM/DL (12.0-16.0); Immature Granulocytes Absolute 0.19 #; Lymphocytes # 1.8 10*3/uL (1.4-4.0); Mean Corpuscular HGB Conc 33.1 GM/DL (32-36); Mean Corpuscular Hemoglobin 29 PG (27-34); Mean Corpuscular Volume 88.6 FL (87-102); Mean Platelet Volume 10.6 FL (9.6-12.0); Monocytes # 0.5 10*3/uL (0.11-0.8); Monocytes % 8.3 % (1.7-12.7); Neutrophils # 3.5 10*3/uL (1.4-7.4); Neutrophils % 56.2 % (38.7-73.9); Platelet Count 254 T/CUMM (130-400); Red Blood Count 3.24 MC/CUMM (3.8-5.5); Red Cell Distribution Width 13.1 % (9.3-17.3); White Blood Count 6.3 T/CUMM (4-12)
[2017-04-26 06:15] LABS: Calcium 8.8 MG/DL (8.5-10.1); Potassium 4.6 MMOL/L (3.5-5.1)
[2017-04-26 06:21] LABS: Anisocytosis 1+; Band Neutrophils 4 % (0-10); Eosinophils 5 % (0-10); Lymphocytes 26 % (20-55); Metamyelocytes 1 %; Microcytosis 1+; Platelet Estimate Normal; Polychromasia Few; Segmented Neutrophils 54 % (50-85); Total Cells Counted 100
--- NOTE | 2017-04-26 09:02 | Neurology Progress Note ---
Neurology - PN : Subjective Interval history: Patient seems to be doing much better. No new problems reported. No headaches. Walking and talking good. I cannot seems to find herpes PCR report however I was told that it was negative and acyclovir has been discontinued. Exam (Progress Note) - Constitutional Vitals: Period Temp Pulse Resp BP Sys/Gross Pulse Ox Last 24 Hr 96.3 F-98.2 F 72-90 16-20 138-154/60-85 97-100 Exam: GENERAL: Patient is in no acute distress. NECK: Neck is stiff. There is no JVD. No carotid bruits present. No thyroid masses. CVS: First and second heart sounds are normal. There is no S3 present. Regular rate and rhythm. RESPIRATORY: Lungs are clear to auscultation without any rales or rhonchi. ABDOMEN: Soft and non-tender. Bowel sounds are present. There is no hepatosplenomegaly. EXT: There is no palpable edema. Peripheral pulses are present. Skin: No rashes Central Nervous system: General: Alert, awake and Oriented x 3 Speech: Fluent Comprehension: Intact and normal Facial expressions: Normal Cranial Nerves: CN1/Olfactory: Normal CN II/ Optic: Normal, Visual Lacy unreliable CN III, and : MARISOL & EOMI CN V: Normal & intact CN VII: face is symmetric CNVIII: Normal CN XI/X/XI/XII: Intact and Normal Motor: Bulk and Tone is normal. Strength in the right 5/5 Strength in the left 5/5 Sensory: Grossly intact for all the modalities of PP, LT and temp sense Reflexes: 1+ and symmetrical Cerebellar function: Normal finger to nose and heel to drake testing. Toes: Equivocal Gait: Able to get up and walk without assistance. Results - Labs CBC & BMP: 04/26/17 04:19 04/26/17 04:19 Assessment and Plan (1) Viral meningitis Status: Acute Assessment and plan: No further intervention needed. Patient is doing well and recovered. Sign off please call as needed Current Visit: Yes Quality Measures - Stroke Symptom Onset Unknown: No
[2017-04-26] MEDS: INSULIN REGULAR 100 UNIT/ML SUBCUT SCH ×3 (09:11→19:57)
[2017-04-26] MEDS: glipiZIDE 10 MG TABLET PO SCH ×2 (09:16→19:57)
[2017-04-26] MEDS: CYCLOBENZAPRINE 10 MG TABLET PO SCH ×2 (09:17→19:57)
[2017-04-26] MEDS: PANTOPRAZOLE 40 MG TABLET PO SCH (09:17)
[2017-04-26] MEDS: CARVEDILOL 6.25 MG TABLET PO SCH (09:17)
[2017-04-26] MEDS: sitaGLIPtin 100 MG TABLET PO SCH (09:17)
--- NOTE | 2017-04-26 10:42 | Discharge Summary ---
<Justine Obrienda - Last Filed: 04/26/17 11:16> Hospital Course - Hospital Course Hospital Course: This is a very pleasant 67-year-old female that presented to the ED at [facility] on April 17, 2017 for evaluation of hyperglycemia and headache. Patient has a very complex medical history significant for non- insulin-dependent diabetes mellitus, hypertension, dyslipidemia, vitamin B12 deficiency, and GERD. The patient reported a surgical history significant for tonsillectomy, adenoidectomy, hysterectomy, and orthopedic surgeries. The patient reported the onset of above symptoms 1 day prior to presentation. She reported that her blood sugar had been grossly elevated with readings above 450. She reported an inability to gain control of her blood sugars and headache. In addition the patient confirmed neck discomfort, cough, abdominal discomfort, and sore throat; however denied dysuria or frequent urination. She became alarmed due to the severity of the symptoms and decided to present to the ED for further evaluation. At the time of presentation; the patient was noted to be mildly afebrile with a temperature of 100.4. In addition the patient also displayed meningeal signs and was noted to have a positive Kernig's sign. Hematology panel reported a white blood cell count of 10.7, hemoglobin of 10.7, hematocrit at 30.8, and platelet at 207. Chemistry panel reported sodium at 133, potassium of 5.0, chloride 96, carbon dioxide at 28, BUN at 27, creatinine at 1.60, and glucose at 360. Erythrocyte sedimentation rate was noted at 96. Rapid strep panel and influenza panels were essentially negative. CT head was performed which reported no acute intracranial pathology. No evidence of mass-effect or acute cortical stroke observed. Serrano cultures were obtained and sent for analysis. Lumbar puncture was performed in the ED and cerebrospinal fluid was sent for analysis. At the time of lumbar puncture, cerebrospinal fluid opening pressure and protein was elevated. There was mild degree of lymphocytic pleocytosis. The patient was subsequently admitted to the hospitalist group for continuation of care. Empiric antibiotics were initiated. A neurology and infectious disease consult was requested. The patient was started on empiric acyclovir and monitored closely. On yesterday, April 25, 2017 cerebrospinal fluid analysis was complete which was essentially unremarkable for herpes simplex virus. Acyclovir was discontinued at that time. The patient's condition has improved. She has not experienced any significant overnight events. Her vital signs are stable. Today, we feel that she is indeed appropriate for discharge to follow-up with her primary care physician as directed. Patient's blood sugar was still poorly controlled despite multiple oral hypoglycemic agents, we will add Lantus 10units qhs, she has been instructed to log her blood sugar three times a day for 1week and take to PCP for evaluation.She will under DM teaching today prior to dc.Her renal status has also improved, this deteriorated a bit due to acyclovir infusion. Her vitals are stable and she is ready for discharge. Discharge Plan - Discharge Data Disposition: Disch To Home/Self Care - Discharge Medications New Acetaminophen Tab [Tylenol Tab] 325 mg PO Q4H PRN tablet PRN Reason: fever, headache/body aches Atorvastatin [Lipitor] 40 mg PO BEDTIME tablet glipiZIDE [Glucotrol] 15 mg PO BIDAC #60 tablet sitaGLIPtin [Januvia] 100 mg PO DAILY #30 tablet Carvedilol [Coreg] 6.25 mg PO BID #60 tablet Continue Lisinopril 20 mg PO DAILY Cyclobenzaprine [Flexeril] 10 mg PO TID #10 tablet HYDROcodone/ACETAMIN 5-325 [[place] 5-325] 1 tablet PO Q6H #20 tablet Omeprazole 20 mg PO DAILY Cyanocobalamin (Vitamin B-12) [Cyanocobalamin Injection] 1,000 mcg IJ Q30D Discontinued Linagliptin [Tradjenta] 5 mg PO DAILY glipiZIDE [Glipizide] 5 mg PO BID - Follow Up or Referral - Forms/Instructions Instructions: Chronic Kidney Disease (DC), Tension Headache (DC), Diabetic Foot Care (DC), Chronic Hypertension (DC) Exam - Constitutional Vitals: Period Temp Pulse Resp BP Sys/Gross Pulse Ox Last 24 Hr 96.3 F-98.2 F 72-90 16-20 138-154/60-85 97-100 Discharge Results Procedures and tests throughout hospitalization: Pending Orders 04/18/17 01:44 Fungal Culture w/ Prep Routine 04/18/17 15:12 Viral Culture, Non-Respiratory Routine Labs on day of discharge: Labs from last 24 hours 04/26/17 04/26/17 04/26/17 10:58 07:32 04:19 WBC RBC Hgb Hct MCV MCH MCHC RDW Plt Count MPV Neut % (Auto) Lymph % (Auto) Isabela % (Auto) Eos % (Auto) Baso % (Auto) Neut # (Auto) Lymph # (Auto) Isabela # (Auto) Eos # (Auto) Baso # (Auto) Total Counted Immature Gran % Nucleated RBC % Immature Gran # Segmented Neutrophils Band Neutrophils Lymphocytes Monocytes Eosinophils Metamyelocytes Nucleated RBCs # Platelet Estimate Polychromasia Anisocytosis Microcytosis Sodium 143 Potassium 4.6 Chloride 107 Carbon Dioxide 29 Anion Gap 11.6 BUN 22 H Creatinine 1.20 H GFR Calculation 60 BUN/Creatinine Ratio 18.00 Glucose 211 H POC Glucose 326 H 238 H Calculated Osmolality 293.0 Calcium 8.8 04/26/17 04/25/17 04/25/17 04:19 20:12 16:17 WBC 6.3 RBC 3.24 L Hgb 9.5 L Hct 28.7 L MCV 88.6 MCH 29 MCHC 33.1 RDW 13.1 Plt Count 254 MPV 10.6 Neut % (Auto) 56.2 Lymph % (Auto) 28.0 Isabela % (Auto) 8.3 Eos % (Auto) 4.0 Baso % (Auto) 0.5 Neut # (Auto) 3.5 Lymph # (Auto) 1.8 Isabela # (Auto) 0.5 Eos # (Auto) 0.3 Baso # (Auto) 0.0 Total Counted 100 Immature Gran % 3.0 Nucleated RBC % 0.0 Immature Gran # 0.19 Segmented Neutrophils 54 Band Neutrophils 4 Lymphocytes 26 Monocytes 10 Eosinophils 5 Metamyelocytes 1 Nucleated RBCs # 0.00 Platelet Estimate Normal Polychromasia Few Anisocytosis 1+ Microcytosis 1+ Sodium Potassium Chloride Carbon Dioxide Anion Gap BUN Creatinine GFR Calculation BUN/Creatinine Ratio Glucose POC Glucose 217 H 75 Calculated Osmolality Calcium 04/25/17 11:29 WBC RBC Hgb Hct MCV MCH MCHC RDW Plt Count MPV Neut % (Auto) Lymph % (Auto) Isabela % (Auto) Eos % (Auto) Baso % (Auto) Neut # (Auto) Lymph # (Auto) Isabela # (Auto) Eos # (Auto) Baso # (Auto) Total Counted Immature Gran % Nucleated RBC % Immature Gran # Segmented Neutrophils Band Neutrophils Lymphocytes Monocytes Eosinophils Metamyelocytes Nucleated RBCs # Platelet Estimate Polychromasia Anisocytosis Microcytosis Sodium Potassium Chloride Carbon Dioxide Anion Gap BUN Creatinine GFR Calculation BUN/Creatinine Ratio Glucose POC Glucose 242 H Calculated Osmolality Calcium Preliminary micro results at discharge 04/18/17 01:44 Fungal Culture - Preliminary Cerebral Spinal Fluid No Fungus isolated at 1 week DS: Provider Date of admission: 04/18/17 01:25 Primary care physician: . No PCP Attending physician on admission: Bakari Solis MD Consults: 04/18/17 01:25 Consult to Physician [CONS] Routine Comment: suspect meningitis Consulting Provider: Megan Dalton Person Notified: Micheline Date Notified: 04/18/17 Time Notified: 09:00 04/18/17 01:38 Consult to Pharmacy [CONS] Routine Reason for Pharmacy Consult: Dose/Manage Vancomycin 04/18/17 09:00 Consult to Physician [CONS] Routine Comment: possible meningitis, headache fever Consulting Provider: Austen Kang Person Notified: CANDI Date Notified: 04/18/17 Time Notified: 09:02 04/18/17 14:56 Consult to [facility], Educator [CONS] Routine Reason for Dish Person: Diabetes Education 04/22/17 14:48 Consult to Physical Therapy [CONS] Routine Reason for Physical Therapy: Weakness Start Therapy: Tomorrow 04/26/17 10:21 Consult to [facility], Educator [CONS] Routine Reason for Dish Person: Initial Insulin Education Consult Comment: Will go home on lantus 10units at , needs teaching. Discharging clinician: Orlando Obrien CNP <Patsy Burr - Last Filed: 04/26/17 11:33> Hospital Course - Time spent with patient Time with patient DS: Greater than 30 minutes (Time spent:>35mins) Diagnosis - Discharge Diagnosis (1) Meningitis Status: Acute (2) Hypertension Status: Acute (3) Acute renal insufficiency Status: Acute (4) Diabetes Status: Acute (5) Anemia Status: Chronic (6) Headache Status: Acute (7) Hyperlipidemia Status: Acute Discharge Plan - Discharge Data Condition at Discharge: Stable Discharge Diet: diabetic diet Activity: resume usual activities as tolerated - Forms/Instructions Additional Discharge Instructions: Follow with PCP in 1week. Patient to log her blood sugar three times a day for 1week and take to PCP to evaluate Exam - Constitutional General appearance: no acute distress - Head Head exam: Present: normal inspection - Eye Eye exam: Present: EOMI - Neck Neck exam: Present: normal inspection - Respiratory Respiratory exam: Present: clear to auscultation bilaterally - Cardiovascular Cardiovascular exam: Present: regular rate and rhythm - GI/Abdominal GI/Abdominal exam: Present: normal bowel sounds - Extremities Exam Extremities exam: Present: normal inspection
[2017-04-26 11:41] VITALS: BP 184/88
[2017-04-26] MEDS: SODIUM CHLORIDE 0.45% 1,000 ML IV SCH ×2 (19:57→19:58)
== END 2017-04-26 18:37 | disposition home or self-care (01) | DRG 75 ==
LOC: N.ED 19:04 → SUATTDRO 04-18 01:25 → N.EDINP 04-18 01:25 → N.5E 04-18 02:07
PROVIDERS: ADMIT Internal Medicine; ATTEND Internal Medicine